=== PATIENT | male | born 1975 ===

== ENCOUNTER 2018-05-30 15:19 | Emergency (ER) | payer MEDICAID, OTHER ==
[2018-05-30 15:24] VITALS: BMI 35.9
--- NOTE | 2018-05-30 15:50 | ED PDOC ---
HPI: Psych/Substance Abuse Time Seen by Provider: 05/30/18 15:44 Chief Complaint (Nursing): Psychiatric Evaluation Chief Complaint (Provider): Psychiatric Evaluation History Per: Patient, EMS, Family History/Exam Limitations: no limitations Suicide/Self Injury Attempted (Context): None Severity: Moderate Associated Symptoms: Depression, Other (aggressive behavior, (-)homicidal ideation). denies: Suicidal Thoughts Additional Complaint(s): 43 year old male with no pertinent past medical history is brought into the ED by EMS for a psychiatric evaluation for aggressive behavior at home. 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 Patient states that he has had issues with alcoholism and depression for the past few years. Patient denies having suicidal ideation and homicidal ideation. Of note: Patient reports having a terrible headache daily for the past 3x months. PMD: None provided Past Medical History Reviewed: Historical Data, Nursing Documentation, Vital Signs Vital Signs: Last Vital Signs Temp 98.2 F 05/30/18 15:22 Pulse 120 H 05/30/18 15:22 Resp 16 05/30/18 15:22 BP 131/91 H 05/30/18 15:22 Pulse Ox 98 05/30/18 15:22 BASSEM Report Viewed: Yes - Medical History PMH: Depression - Family History Family History: States: No Known Family Hx - Allergies Allergies/Adverse Reactions: Allergies Allergy/AdvReac Type Severity Reaction Status Date / Time No Known Allergies Allergy Verified 05/30/18 15:33 Review of Systems ROS Statement: Except As Marked, All Systems Reviewed And Found Negative Neurological: Positive for: Headache Psych: Positive for: Depression Physical Exam - Reviewed Nursing Documentation Reviewed: Yes Vital Signs Reviewed: Yes - Physical Exam Appears: Positive for: Well, Non-toxic, No Acute Distress Head Exam: Positive for: ATRAUMATIC, NORMOCEPHALIC Skin: Positive for: Normal Color, Warm, Dry Eye Exam: Positive for: Other (poor eye contact) Cardiovascular/Chest: Positive for: Regular Rate, Rhythm Respiratory: Positive for: Normal Breath Sounds Neurologic/Psych: Positive for: Alert, Oriented (3x) - Laboratory Results Result Diagrams: 05/30/18 16:18 05/30/18 16:18 - ECG ECG: Positive for: Interpreted By Me, Viewed By Me ECG Rhythm: Positive for: Sinus Tachycardia Rate: 106 O2 Sat by Pulse Oximetry: 98 (RA) Pulse Ox Interpretation: Normal - CT Scan/US CT head Other Rad Studies (CT/US): Read By Radiologist, Radiology Report Reviewed (see MDM) - Progress ED Course And Treament: EKG: SINUS TACHYCARDIA 107BPM NO ECTOPY NO ACUTE CHANGES CXR: NAD PATIENT IS MEDICALLY CLEARED FOR PSYCHIATRIC EVALUATION SEEN BY CRISIS. D/W DR. GOODRICH DIAGNOSIS UNSPECIFIED PSYCHIATRIC ILLNESS. Medical Decision Making Medical Decision Makin:44 Initial impression: 43 year old male in the ED for a psychiatric and medical evaluation of a headache. Initial plan: * CT head w/o contrast * alcohol serum * CMP * drug screen * CBC with diff * urinalysis * 1:1 * crisis evaluation * reevaluation 19:21 CT head read and reviewed by radiologist FINDINGS: BRAIN No acute intraparenchymal hemorrhage. No mass lesion. No CT evidence for acute territorial infarct. No midline shift or extra-axial collections. VENTRICLES: No hydrocephalus. ORBITS: The orbits are unremarkable. SINUSES AND MASTOIDS: The paranasal sinuses and mastoid air cells are clear. BONES: No fracture. SOFT TISSUES: Unremarkable. IMPRESSION: No acute intracranial abnormality. Scribe Attestation: Documented Walter Fuchs, acting as a scribe for Greg Vasquez PA-C. Provider Scribe Attestation: All medical record entries made by the Scribe were at my direction and personally dictated by me. I have reviewed the chart and agree that the record accurately reflects my personal performance of the history, physical exam, medical decision making, and the department course for this patient. I have also personally directed, reviewed, and agree with the discharge instructions and disposition. Disposition - Clinical Impression Clinical Impression: Psychiatric disturbance - Patient ED Disposition Is Patient to be Admitted: Transfer of Care - Disposition Disposition: Transfer of Care Disposition Time: 00:00 Condition: FAIR Patient Signed Over To: Stuart Ortega Handoff Comments: PENDING [facility] EVALUATION
[2018-05-30 16:27] LABS: BASO # 0.1 K/uL (0.0-0.2); BASO % 1.3 % (0.0-2.0); EOS # 0.1 K/uL (0.0-0.7); EOS % 1.5 % (0.0-4.0); HEMOGLOBIN 13.8 g/dL (12.0-18.0); LYMPH # 1.8 K/uL (1.0-4.3); LYMPH % 33.5 % (20.0-40.0); MEAN CELL VOLUME 96.8 fl (80.0-94.0); MEAN CORPUSCULAR HEMOGLOBIN 32.5 pg (27.0-31.0); MEAN CORPUSCULAR HGB CONC 33.6 g/dL (33.0-37.0); MEAN PLATELET VOLUME 8.5 fl (7.2-11.7); MONO # 0.5 K/uL (0.0-0.8); MONO % 8.6 % (0.0-10.0); NEUT # 2.9 K/uL (1.8-7.0); NEUT % 55.1 % (50.0-75.0); NRBC % 0.1 % (0.0-0.0); RBC 4.24 Mil/uL (4.40-5.90); RED CELL DISTRIBUTION WIDTH 13.2 % (11.5-14.5); WHITE BLOOD COUNT 5.3 K/uL (4.8-10.8)
[2018-05-30 16:38] LABS: ALB/GLOB RATIO 1.4 (1.0-2.1); ALBUMIN 4.3 g/dL (3.5-5.0); ALT/SGPT 34 U/L (21-72); AST/SGOT 28 U/L (17-59); BLOOD UREA NITROGEN 11 mg/dl (9-20); GFR NON-AFRICAN AMERICAN > 60
[2018-05-30 17:26] LABS: URINE BILIRUBIN NEGATIVE (NEGATIVE); URINE BLOOD NEGATIVE (NEGATIVE); URINE CLARITY CLEAR (Clear); URINE COLOR YELLOW (YELLOW); URINE GLUCOSE (UA) NEG (NEGATIVE); URINE LEUKOCYTE ESTERASE NEG Leu/uL (Negative); URINE PROTEIN 30 mg/dL (NEGATIVE); URINE UROBILINOGEN 0.2-1.0 mg/dL (0.2-1.0)
[2018-05-30 17:41] LABS: BARBITURATES, UR NEGATIVE (NEGATIVE); BENZODIAZEPINES, UR NEGATIVE (NEGATIVE); OPIATES, UR NEGATIVE (NEGATIVE); PHENCYCLIDINE, UR NEGATIVE (NEGATIVE)
--- NOTE | 2018-05-31 04:13 | ED PDOC ---
- Laboratory Results Result Diagrams: 05/30/18 16:18 05/30/18 16:18 Lab Results: Total Bilirubin 0.8 mg/dl (0.2-1.3) 05/30/18 16:18 AST 28 U/L (17-59) 05/30/18 16:18 ALT 34 U/L (21-72) 05/30/18 16:18 Alkaline Phosphatase 44 U/L (38-126) 05/30/18 16:18 Total Protein 7.3 G/DL (6.3-8.2) 05/30/18 16:18 Albumin 4.3 g/dL (3.5-5.0) 05/30/18 16:18 Globulin 3.1 gm/dL (2.2-3.9) 05/30/18 16:18 Albumin/Globulin Ratio 1.4 (1.0-2.1) 05/30/18 16:18 Urine Color Yellow (YELLOW) 05/30/18 17:15 Urine Clarity Clear (Clear) 05/30/18 17:15 Urine pH 6.0 (5.0-8.0) 05/30/18 17:15 Ur Specific [place] 1.016 (1.003-1.030) 05/30/18 17:15 Urine Protein 30 mg/dL (NEGATIVE) 05/30/18 17:15 Urine Glucose (UA) Neg mg/dL (NEGATIVE) 05/30/18 17:15 Urine Ketones Negative mg/dL (NEGATIVE) 05/30/18 17:15 Urine Blood Negative (NEGATIVE) 05/30/18 17:15 Urine Nitrate Negative (NEGATIVE) 05/30/18 17:15 Urine Bilirubin Negative (NEGATIVE) 05/30/18 17:15 Urine Urobilinogen 0.2-1.0 mg/dL (0.2-1.0) 05/30/18 17:15 Ur Leukocyte Esterase Neg Mariam/uL (Negative) 05/30/18 17:15 - ECG O2 Sat by Pulse Oximetry: 100 - Progress ED Course And Treament: 0000 Signed out to me pending [facility] [place] [place] 0100 Sleeping comfortably. No distress. 0300 Pt. accepted [place] [facility] [place] Pending transfer. Disposition - Clinical Impression Clinical Impression: Schizophrenia - POA Present On Arrival: None - Disposition Disposition: Transfer of Care (Dr. Shazia continued care at the end of my shift pending [facility] [place] Disposition Time: 06:00 Condition: STABLE Forms: [facility] 911 (Turkish)
[2018-05-31 05:47] VITALS: RESP 18
--- NOTE | 2018-05-31 07:02 | ED PDOC ---
- Laboratory Results Result Diagrams: 05/30/18 16:18 05/30/18 16:18 Lab Results: Total Bilirubin 0.8 mg/dl (0.2-1.3) 05/30/18 16:18 AST 28 U/L (17-59) 05/30/18 16:18 ALT 34 U/L (21-72) 05/30/18 16:18 Alkaline Phosphatase 44 U/L (38-126) 05/30/18 16:18 Total Protein 7.3 G/DL (6.3-8.2) 05/30/18 16:18 Albumin 4.3 g/dL (3.5-5.0) 05/30/18 16:18 Globulin 3.1 gm/dL (2.2-3.9) 05/30/18 16:18 Albumin/Globulin Ratio 1.4 (1.0-2.1) 05/30/18 16:18 Urine Color Yellow (YELLOW) 05/30/18 17:15 Urine Clarity Clear (Clear) 05/30/18 17:15 Urine pH 6.0 (5.0-8.0) 05/30/18 17:15 Ur Specific [place] 1.016 (1.003-1.030) 05/30/18 17:15 Urine Protein 30 mg/dL (NEGATIVE) 05/30/18 17:15 Urine Glucose (UA) Neg mg/dL (NEGATIVE) 05/30/18 17:15 Urine Ketones Negative mg/dL (NEGATIVE) 05/30/18 17:15 Urine Blood Negative (NEGATIVE) 05/30/18 17:15 Urine Nitrate Negative (NEGATIVE) 05/30/18 17:15 Urine Bilirubin Negative (NEGATIVE) 05/30/18 17:15 Urine Urobilinogen 0.2-1.0 mg/dL (0.2-1.0) 05/30/18 17:15 Ur Leukocyte Esterase Neg Mariam/uL (Negative) 05/30/18 17:15 - ECG O2 Sat by Pulse Oximetry: 100 Medical Decision Making Medical Decision Makinam received pending bed availability at [facility] Disposition - Clinical Impression Clinical Impression: Schizophrenia - Disposition Condition: STABLE Forms: [employer] (Finnish)
--- NOTE | 2018-05-31 08:46 | CT ---
Date of service: 05/30/2018 PROCEDURE: CT HEAD WITHOUT CONTRAST. HISTORY: headache COMPARISON: None available. TECHNIQUE: Axial computed tomography images were obtained through the head/brain without intravenous contrast. Radiation dose: Total exam DLP = 903.53 mGy-cm. This CT exam was performed using one or more of the following dose reduction techniques: Automated exposure control, adjustment of the mA and/or kV according to patient size, and/or use of iterative reconstruction technique. FINDINGS: HEMORRHAGE: No intracranial hemorrhage. BRAIN: No mass effect or edema. No atrophy or chronic microvascular ischemic changes. VENTRICLES: Unremarkable. No hydrocephalus. CALVARIUM: Unremarkable. PARANASAL SINUSES: Unremarkable as visualized. No significant inflammatory changes. MASTOID AIR CELLS: Unremarkable as visualized. No inflammatory changes. OTHER FINDINGS: None. IMPRESSION: No acute intracranial pathology.
[2018-05-31 10:05] VITALS: TEMP 98.2
--- NOTE | 2018-05-31 10:23 | RAD ---
Date of service: 05/30/2018 HISTORY: routine COMPARISON: No prior. FINDINGS: LUNGS: No active pulmonary disease. PLEURA: No significant pleural effusion identified, no pneumothorax apparent. CARDIOVASCULAR: No aortic atherosclerotic calcification present. Normal cardiac size. No pulmonary vascular congestion. OSSEOUS STRUCTURES: No significant abnormalities. VISUALIZED UPPER ABDOMEN: Normal. OTHER FINDINGS: None. IMPRESSION: No active disease.
--- NOTE | 2018-05-31 13:17 | CARD ---
APPROVED REPORT Date of service: 05/30/2018 EKG Measurement Heart [id number] <Conclusion> Sinus tachycardia Otherwise normal ECG
--- NOTE | 2018-05-31 16:56 | CP.PCM.CON ---
History of Present Illness - History of Present Illness History of Present Illness: This is a 43 yr old male with h/o depression and significant psychosis and has been brought to ER by family as pt is very depressed ,disorganized and paranoid with poor insight and judgement refusing voluntary admission.pt has been sc reened by [facility] and accepted for admission and requesting a PC by the blog writer for pt 's involuntary committment so that pt can go to the Unit in [facility] directly. Past Patient History - Past Social History Smoking Status: Never Smoked - CARDIAC Hx Cardiac Disorders: No Hx Hypertension: No - PULMONARY Hx Tuberculosis: No - NEUROLOGICAL HX Cerebrovascular Accident: No Hx Seizures: No - HEMATOLOGICAL/ONCOLOGICAL Hx Cancer: No Hx Human Immunodeficiency Virus (HIV): No - GENITOURINARY/GYNECOLOGICAL Hx Sexually Transmitted Disorders: No - PSYCHIATRIC Hx Depression: Yes Meds Allergies/Adverse Reactions: Allergies Allergy/AdvReac Type Severity Reaction Status Date / Time No Known Allergies Allergy Verified 05/30/18 15:33 Results - Vital Signs Recent Vital Signs: Last Vital Signs Temp 98.2 F 05/31/18 10:04 Pulse 77 05/31/18 10:04 Resp 18 05/31/18 10:04 BP 148/87 05/31/18 10:04 Pulse Ox 99 05/31/18 10:04 - Labs Result Diagrams: 05/30/18 16:18 05/30/18 16:18 Labs: Laboratory Results - last 24 hr 05/30/18 05/30/18 17:15 17:15 Urine Color Yellow Urine Clarity Clear Urine pH 6.0 Ur Specific [place] 1.016 Urine Protein 30 Urine Glucose (UA) Neg Urine Ketones Negative Urine Blood Negative Urine Nitrate Negative Urine Bilirubin Negative Urine Urobilinogen 0.2-1.0 Ur Leukocyte Esterase Neg Urine Opiates Screen Negative Urine Methadone Screen Negative Ur Barbiturates Screen Negative Ur Phencyclidine Scrn Negative Ur Amphetamines Screen Negative U Benzodiazepines Scrn Negative U Oth Cocaine Metabols Negative U Cannabinoids Screen Negative
--- NOTE | 2018-05-31 17:31 | ED PDOC ---
- Laboratory Results Result Diagrams: 05/30/18 16:18 05/30/18 16:18 Lab Results: Total Bilirubin 0.8 mg/dl (0.2-1.3) 05/30/18 16:18 AST 28 U/L (17-59) 05/30/18 16:18 ALT 34 U/L (21-72) 05/30/18 16:18 Alkaline Phosphatase 44 U/L (38-126) 05/30/18 16:18 Total Protein 7.3 G/DL (6.3-8.2) 05/30/18 16:18 Albumin 4.3 g/dL (3.5-5.0) 05/30/18 16:18 Globulin 3.1 gm/dL (2.2-3.9) 05/30/18 16:18 Albumin/Globulin Ratio 1.4 (1.0-2.1) 05/30/18 16:18 Urine Color Yellow (YELLOW) 05/30/18 17:15 Urine Clarity Clear (Clear) 05/30/18 17:15 Urine pH 6.0 (5.0-8.0) 05/30/18 17:15 Ur Specific [place] 1.016 (1.003-1.030) 05/30/18 17:15 Urine Protein 30 mg/dL (NEGATIVE) 05/30/18 17:15 Urine Glucose (UA) Neg mg/dL (NEGATIVE) 05/30/18 17:15 Urine Ketones Negative mg/dL (NEGATIVE) 05/30/18 17:15 Urine Blood Negative (NEGATIVE) 05/30/18 17:15 Urine Nitrate Negative (NEGATIVE) 05/30/18 17:15 Urine Bilirubin Negative (NEGATIVE) 05/30/18 17:15 Urine Urobilinogen 0.2-1.0 mg/dL (0.2-1.0) 05/30/18 17:15 Ur Leukocyte Esterase Neg Mariam/uL (Negative) 05/30/18 17:15 - ECG O2 Sat by Pulse Oximetry: 99 Medical Decision Making Medical Decision Making: Pt seen and evaluated by crisis and awaiting bed at [facility] [place] [place]. Pt comfortable with normal vitals. Signed out from Dr. Mendez pending transfer out. No medical intervention needed at this time. Disposition - Clinical Impression Clinical Impression: Schizophrenia - POA Present On Arrival: None - Disposition Disposition: Transfer of Care Disposition Time: 19:00 Condition: FAIR Forms: [facility] (Wolof)
--- NOTE | 2018-05-31 19:56 | ED PDOC ---
- Laboratory Results Result Diagrams: 05/30/18 16:18 05/30/18 16:18 Lab Results: Total Bilirubin 0.8 mg/dl (0.2-1.3) 05/30/18 16:18 AST 28 U/L (17-59) 05/30/18 16:18 ALT 34 U/L (21-72) 05/30/18 16:18 Alkaline Phosphatase 44 U/L (38-126) 05/30/18 16:18 Total Protein 7.3 G/DL (6.3-8.2) 05/30/18 16:18 Albumin 4.3 g/dL (3.5-5.0) 05/30/18 16:18 Globulin 3.1 gm/dL (2.2-3.9) 05/30/18 16:18 Albumin/Globulin Ratio 1.4 (1.0-2.1) 05/30/18 16:18 Urine Color Yellow (YELLOW) 05/30/18 17:15 Urine Clarity Clear (Clear) 05/30/18 17:15 Urine pH 6.0 (5.0-8.0) 05/30/18 17:15 Ur Specific [place] 1.016 (1.003-1.030) 05/30/18 17:15 Urine Protein 30 mg/dL (NEGATIVE) 05/30/18 17:15 Urine Glucose (UA) Neg mg/dL (NEGATIVE) 05/30/18 17:15 Urine Ketones Negative mg/dL (NEGATIVE) 05/30/18 17:15 Urine Blood Negative (NEGATIVE) 05/30/18 17:15 Urine Nitrate Negative (NEGATIVE) 05/30/18 17:15 Urine Bilirubin Negative (NEGATIVE) 05/30/18 17:15 Urine Urobilinogen 0.2-1.0 mg/dL (0.2-1.0) 05/30/18 17:15 Ur Leukocyte Esterase Neg Mariam/uL (Negative) 05/30/18 17:15 - ECG O2 Sat by Pulse Oximetry: 100 Medical Decision Making Medical Decision Makin:00 Patient endorsed to provider by Dr. Flores pending [facility] [place]. 20:50 Patient was [place] [facility] Scribe Attestation: Documented by Say Pham, acting as a scribe for Matt Mehta MD Provider Scribe Attestation: All medical record entries made by the Scribe were at my direction and personally dictated by me. I have reviewed the chart and agree that the record accurately reflects my personal performance of the history, physical exam, medical decision making, and the department course for this patient. I have also personally directed, reviewed, and agree with the discharge instructions and disposition. Disposition - Clinical Impression Clinical Impression: Schizophrenia - POA Present On Arrival: None - Disposition Disposition: Other Institution Disposition Time: 20:50 Condition: FAIR Forms: [employer] (Belarusian)
[2018-05-31 22:35] VITALS: BP 153/89; PULSE 89
[2018-06-02 14:27] VITALS: O2SAT 99
== END 2018-05-31 20:50 | disposition short-term general hospital (02) ==
LOC: H.ER 15:19
DX: F20.9 Schizophrenia, unspecified (principal); F32.9 Major depressive disorder, single episode, unspecified; R51 Headache
CPT/HCPCS: 70450; 71045; 80053; 81003; 85025; 93005; 99285; G0480

== ENCOUNTER 2018-07-07 15:18 | Observation (INO) | payer MEDICAID, OTHER ==
[2018-07-07 15:18] VITALS: BMI 35.9
[2018-07-07 17:00] LABS: BASO # 0.1 K/uL (0.0-0.2); BASO % 0.9 % (0.0-2.0); EOS # 0.1 K/uL (0.0-0.7); EOS % 1.1 % (0.0-4.0); HEMOGLOBIN 15.3 g/dL (12.0-18.0); LYMPH # 2.5 K/uL (1.0-4.3); MEAN CELL VOLUME 95.2 fl (80.0-94.0); MEAN CORPUSCULAR HEMOGLOBIN 32.2 pg (27.0-31.0); MEAN CORPUSCULAR HGB CONC 33.9 g/dL (33.0-37.0); MEAN PLATELET VOLUME 8.7 fl (7.2-11.7); MONO # 0.8 K/uL (0.0-0.8); NEUT # 4.3 K/uL (1.8-7.0); NRBC % 0.1 % (0.0-0.0); RBC 4.73 Mil/uL (4.40-5.90); RED CELL DISTRIBUTION WIDTH 13.1 % (11.5-14.5); WHITE BLOOD COUNT 7.7 K/uL (4.8-10.8)
[2018-07-07 17:13] LABS: BLOOD UREA NITROGEN 17 mg/dl (9-20); CALCIUM 9.8 mg/dL (8.4-10.2); GFR NON-AFRICAN AMERICAN > 60
--- NOTE | 2018-07-07 19:24 | ED PDOC ---
Syncope/Near Syncope/Dizziness Time Seen by Provider: 07/07/18 15:52 Chief Complaint (Nursing): Dizziness/Lightheaded Chief Complaint (Provider): dizziness/syncope History Per: Patient Additional Complaint(s): 43 y/o M with recently diagnosed schizoaffective disorder with depressed mood who was recently admitted involuntarily to [facility] for psychosis and was discharged on 06/09/18. Pt states that he was discharged on Risperidone and Benadryl for sleep and has been taking it regularly. Pt woke up this morning and went to walk to the bathroom when he had a syncopal episode with + LOC. He denies head trauma as his mother was with him and caught him but continues to have dizziness since that occurrence. Further denies urinary or fecal incontinence, palpitations, C/P, SOB, visual disturbance, unilateral weakness. denies N/V, diarrhea. He has been drinking normally and has never had a syncopal episode before. OF note: pt states that he had an allergic reaction to a medication at [facility] but is not sure what medication it was. Past Medical History Reviewed: Historical Data, Nursing Documentation, Vital Signs Vital Signs: Last Vital Signs Temp 98.7 F 07/07/18 15:22 Pulse 83 07/07/18 15:22 Resp 18 07/07/18 15:22 BP 141/98 H 07/07/18 15:22 Pulse Ox 100 07/07/18 15:22 - Medical History PMH: Depression (06/09 started) Denies: Diabetes, Hepatitis, HIV, HTN, Seizures, Sexually Transmitted Disease Other PMH: schizoaffective disorder with depressed mood - Family History Family History: States: Unknown Family Hx - Allergies Allergies/Adverse Reactions: Allergies Allergy/AdvReac Type Severity Reaction Status Date / Time No Known Allergies Allergy Verified 05/30/18 15:33 Review of Systems Constitutional: Negative for: Fever, Chills Physical Exam - Reviewed Nursing Documentation Reviewed: Yes Vital Signs Reviewed: Yes - Physical Exam Appears: Positive for: Non-toxic Head Exam: Positive for: ATRAUMATIC Skin: Positive for: Normal Color Eye Exam: Positive for: EOMI, PERRL ENT: Positive for: Normal ENT Inspection Neck: Positive for: Normal, Painless ROM Cardiovascular/Chest: Positive for: Regular Rate, Rhythm Respiratory: Positive for: Normal Breath Sounds Neurologic/Psych: Positive for: Alert, transportation escort II-XII (symmetrical smile, puff cheeks symmetrically, no tongue deviation. ), Oriented, Cerebellar Tests (able to perform alternating finger to nose. ), Gait (stable). Negative for: Facial Droop - Laboratory Results Result Diagrams: 07/07/18 16:44 07/07/18 16:44 - ECG O2 Sat by Pulse Oximetry: 100 Medical Decision Making Medical Decision Making: CBC, CMP EKG Tele Head CT w/o contrast Orthostatic BP Labs wnl orthostatic BP: Lying: BP: 132/85, HR 85; Sittin/93, HR 93; standing: BP: 136/80, HR 116; NS 1L IV x 1 given orthostatic tachycardia NO events on telemetry 20:15: Head CT w/o contrast: no intracranial abnormality. Dr. Kuhn of neurology consulted who stated that he will see patient during admission. Admission discussed with Dr. Roth and care transferred at 20:42. Pt to be admitted for observation on telemetry for syncope. Disposition - Clinical Impression Clinical Impression: Syncope - Patient ED Disposition Is Patient to be Admitted: Transfer of Care (Dr. Roth) Counseled Patient/Family Regarding: Studies Performed, Diagnosis - Disposition Disposition: Transfer of Care Disposition Time: 20:42 Condition: FAIR Forms: [employer] (Kazakh)
[2018-07-07] MEDS ORDERED: Sodium Chloride 0.9% 1,000 ML IV STA (19:29)
--- NOTE | 2018-07-08 10:53 | CT ---
Date of service: 07/07/2018 PROCEDURE: CT HEAD WITHOUT CONTRAST. HISTORY: s/p syncope with residual dizziness COMPARISON: 05/30/2018. TECHNIQUE: Axial computed tomography images were obtained through the head/brain without intravenous contrast. Supplemental Coronal and Sagittal projections created and reviewed. Radiation dose: Total exam DLP = 81.50 mGy-cm. This CT exam was performed using one or more of the following dose reduction techniques: Automated exposure control, adjustment of the mA and/or kV according to patient size, and/or use of iterative reconstruction technique. FINDINGS: HEMORRHAGE: No intracranial hemorrhage. BRAIN: No mass effect or edema. No atrophy or chronic microvascular ischemic changes. VENTRICLES: Unremarkable. No hydrocephalus. CALVARIUM: Unremarkable. PARANASAL SINUSES: Unremarkable as visualized. No significant inflammatory changes. MASTOID AIR CELLS: Unremarkable as visualized. No inflammatory changes. OTHER FINDINGS: None. IMPRESSION: No acute intracranial abnormalities. No significant findings to account for the clinical presentation. No significant interval change compared to the prior examination(s). Concordant results (preliminary interpretation) provided by [employer]. Procedure Completed: 19:18. Preliminary Report: Interpreted and electronically signed: 19:38. Final Interpretation: 10:48. July 08, 2018
--- NOTE | 2018-07-08 12:49 | CARD ---
APPROVED REPORT Date of service: 07/07/2018 EKG Measurement Heart [id number] [id number] <Conclusion> Normal sinus rhythm Early repolarization Normal ECG
--- NOTE | 2018-07-08 14:06 | CP.PCM.CON ---
History of Present Illness - History of Present Illness History of Present Illness: Neurology Consultation Note: Consult requested by Dr. Roth Mr. Soto is a 43-year-old man with a past medical history of schizoaffective disorder, recently started on Risperdal and Benadryl and has been taking his medications regularly. He got out of bed and was feeling dizzy, had a syncopal episode. There was no reported shaking, jerking activity or loss of urinary/bowel content, no tongue biting reported. CT scan of the head did not show any concerning findings. The patient still complains of feeling dizzy, but not vertigo and does not have any focal weakness. Review of Systems - Constitutional Constitutional: As Per HPI - EENT Eyes: absent: As Per HPI, Blind Spots, Blurred Vision, Change in Vision, Decreased Night Vision, Diplopia, Discharge, Dry Eye, Exophthalmos, Floaters, Irritation, Itchy Eyes, Loss of Peripheral Vision, Pain, Photophobia, Requires Corrective Lenses, Sees Flashes, Spots in Vision, Tunnel Vision, Other Visual Disturbances, Loss of Vision, Other Ears: absent: As Per HPI, Decreased Hearing, Ear Discharge, Ear Pain, Tinnitus, Abnormal Hearing, Disequilibrium, Dizziness, Other Nose/Mouth/Throat: absent: As Per HPI, Epistaxis, Nasal Congestion, Nasal Discharge, Nasal Obstruction, Nasal Trauma, Nose Pain, Post Nasal Drip, Sinus Pain, Sinus Pressure, Bleeding Gums, Change in Voice, Dental Pain, Dry Mouth, Dysphagia, Halitosis, Hoarsness, Lip Swelling, Mouth Lesions, Mouth Pain, Odynophagia, Sore Throat, Throat Swelling, Tongue Swelling, Facial Pain, Neck Pain, Neck Mass, Other - Cardiovascular Cardiovascular: absent: As Per HPI, Acrocyanosis, Chest Pain, Chest Pain at Rest, Chest Pain with Activity, Claudication, Diaphoresis, Dyspnea, Dyspnea on Exertion, Edema, Irregular Heart Rhythm, Pain Radiating to Arm/Neck/Jaw, Leg Edema, Leg Ulcers, Lightheadedness, Orthopnea, Palpitations, Paroxysmal Nocturnal Dyspnea, Pedal Edema, Radiating Pain, Rapid Heart Rate, Slow Heart Rate, Syncope, Other - Respiratory Respiratory: absent: As Per HPI, Cough, Dyspnea, Hemoptysis, Dyspnea on Exertion, Wheezing, Snoring, Stridor, Pain on Inspiration, Chest Congestion, Excessive Mucous Production, Change in Mucous Color, Pain with Coughing, Other - Gastrointestinal Gastrointestinal: absent: As Per HPI, Abdominal Pain, Belching, Bloating, Change in Bowel Habits, Change in Stool Character, Coffee Ground Emesis, Constipation, Cramping, Diarrhea, Dyspepsia, Dysphagia, Early Satiety, Excessive Flatus, Fecal Incontinence, Heartburn, Hematemesis, Hematochezia, Loose Stools, Melena, Nausea, Odynophagia, Temesmus, Vomiting, Other - Musculoskeletal Musculoskeletal: absent: As Per HPI, Abnormal Gait, Arthralgias, Atrophy, Back Pain, Deformity, Joint Swelling, Limited Range of Motion, Loss of Height, Muscle Cramps, Muscle Weakness, Myalgias, Neck Pain, Numbness, Radiating Pain into Limb, Stiffness, Tingling, Other - Integumentary Integumentary: absent: As Per HPI, Acne, Alopecia, Bleeding Lesions, Change in Hair, Change in Nails, Change in Pigmentation, Changing Lesions, Dry Skin, Erythema, Furuncle, Hirsutism, Lesions, New Lesions, Non-Healing Lesions, Photosensitivity, Pruritus, Rash, Skin Pain, Skin Ulcer, Sores, Striae, Swelling, Unusual Bruising, Wounds, Jaundice, Other - Neurological Neurological: As Per HPI - Psychiatric Psychiatric: absent: As Per HPI, Abnormal Sleep Pattern, Anhedonia, Anxiety, Auditory Hallucinations, Behavioral Changes, Change in Appetite, Change in Libido, Confusion, Depression, Difficulty Concentrating, Hallucinations, Scott icidal Ideation, Hopelessness, Irritability, Memory Loss, Mood Swings, Panic Attacks, Paranoia, Suicidal Ideation, Visual Hallucinations, Tactile Hallucinations, Other - Endocrine Endocrine: absent: As Per HPI, Change in Body Appearance, Change in Libido, Cold Intolorance, Deepening of Voice, Excessive Sweating, Fatigue, Flushing, Heat Intolorance, Increase in Ring/Shoe/Hat Size, Palpitations, Polydipsia, Polyphagia, Polyuria, Other - Hematologic/Lymphatic Hematologic: absent: As Per HPI, Easy Bleeding, Easy Bruising, Lymphadenopathy, Other Past Patient History - Past Social History Smoking Status: Never Smoked - CARDIAC Hx Cardiac Disorders: No - PULMONARY Hx Respiratory Disorders: No Hx Tuberculosis: No - NEUROLOGICAL Hx Neurological Disorder: No Hx Seizures: No - HEENT Hx HEENT Problems: No - RENAL Hx Chronic Kidney Disease: No - ENDOCRINE/METABOLIC Hx Endocrine Disorders: No - HEMATOLOGICAL/ONCOLOGICAL Hx Blood Disorders: No Hx AIDS: No Hx Human Immunodeficiency Virus (HIV): No - INTEGUMENTARY Hx Dermatological Problems: No - MUSCULOSKELETAL/RHEUMATOLOGICAL Hx Musculoskeletal Disorders: No Hx Falls: Yes - GASTROINTESTINAL Hx Gastrointestinal Disorders: No - GENITOURINARY/GYNECOLOGICAL Hx Genitourinary Disorders: No Hx Sexually Transmitted Disorders: No - PSYCHIATRIC Hx Psychophysiologic Disorder: Yes (schizoaffective disorder) Hx Depression: Yes Hx Substance Use: No - SURGICAL HISTORY Hx Surgeries: No - ANESTHESIA Hx Anesthesia: No Meds Allergies/Adverse Reactions: Allergies Allergy/AdvReac Type Severity Reaction Status Date / Time No Known Allergies Allergy Verified 05/30/18 15:33 - Medications Medications: Current Medications Fluticasone Propionate (Flonase) 1 spr CORNELIA BID GLENN Risperidone (Risperdal Tab) 2 mg PO HS GLENN Physical Exam - Constitutional Appears: Well - Head Exam Head Exam: ATRAUMATIC, NORMAL INSPECTION, NORMOCEPHALIC - Eye Exam Eye Exam: EOMI, Normal appearance, PERRL Pupil Exam: NORMAL ACCOMODATION, PERRL - ENT Exam ENT Exam: Mucous Membranes Moist, Normal Exam - Neck Exam Neck exam: Positive for: Normal Inspection - Respiratory Exam Respiratory Exam: Clear to Auscultation Bilateral, NORMAL BREATHING PATTERN - Cardiovascular Exam Cardiovascular Exam: REGULAR RHYTHM - GI/Abdominal Exam GI & Abdominal Exam: Normal Bowel Sounds, Soft. absent: Tenderness - Extremities Exam Extremities exam: Positive for: normal inspection - Back Exam Back exam: NORMAL INSPECTION - Neurological Exam Neurological exam: Alert, CN II-XII Intact, Normal Gait, Oriented x3, Reflexes Normal - Psychiatric Exam Psychiatric exam: Normal Affect, Normal Mood - Skin Skin Exam: Dry, Intact, Normal Color, Warm Results - Vital Signs Recent Vital Signs: Last Vital Signs Temp 98.6 F 07/08/18 12:24 Pulse 75 07/08/18 12:24 Resp 18 07/08/18 12:24 BP 123/80 07/08/18 12:24 Pulse Ox 96 07/08/18 12:24 - Labs Result Diagrams: 07/07/18 16:44 07/07/18 16:44 Labs: Laboratory Results - last 24 hr 07/07/18 07/07/18 07/07/18 15:28 16:44 16:44 WBC 7.7 RBC 4.73 Hgb 15.3 Hct 45.1 MCV 95.2 H MCH 32.2 H MCHC 33.9 RDW 13.1 Plt Count 212 MPV 8.7 Neut % (Auto) 56.0 Lymph % (Auto) 32.0 Sunflower % (Auto) 10.0 Eos % (Auto) 1.1 Baso % (Auto) 0.9 Neut # (Auto) 4.3 Lymph # (Auto) 2.5 Sunflower # (Auto) 0.8 Eos # (Auto) 0.1 Baso # (Auto) 0.1 Sodium 139 Potassium 3.9 Chloride 99 Carbon Dioxide 26 Anion Gap 18 BUN 17 Creatinine 1.1 Est GFR ( Amer) > 60 Est GFR (Non-Af Amer) > 60 POC Glucose (mg/dL) 91 Random Glucose 80 Calcium 9.8 Troponin I 07/08/18 08:10 WBC RBC Hgb Hct MCV MCH MCHC RDW Plt Count MPV Neut % (Auto) Lymph % (Auto) Sunflower % (Auto) Eos % (Auto) Baso % (Auto) Neut # (Auto) Lymph # (Auto) Sunflower # (Auto) Eos # (Auto) Baso # (Auto) Sodium Potassium Chloride Carbon Dioxide Anion Gap BUN Creatinine Est GFR ( Amer) Est GFR (Non-Af Amer) POC Glucose (mg/dL) Random Glucose Calcium Troponin I < 0.0120 Assessment & Plan (1) Syncope Assessment and Plan: This may be due to new medication effect; however, there is a concern that anti- psychotics can also lower the seizure threshold. I recommend obtaining an EEG. If normal, follow up with psychiatry for medication adjustment. Thank you for this consultation. Status: Acute
--- NOTE | 2018-07-08 16:31 | US ---
Date of service: 07/08/2018 PROCEDURE: Duplex ultrasound of the carotid and vertebral arteries. HISTORY: syncope COMPARISON: None available. TECHNIQUE: Grayscale and duplex Doppler evaluation of the cervical carotid and vertebral arteries were performed. The common carotid, carotid bifurcations and cervical ICA and proximal ECA were evaluated. The vertebral arteries were evaluated for gross patency and direction. FINDINGS: RIGHT CAROTID ARTERIES: Common Carotid Artery: Maximal flow velocity of 77.6 cm/s. Carotid Bifurcation: Normal. Internal Carotid Artery:Heterogeneous plaque formation. Maximal flow velocity of 51.0 cm/s. External Carotid Artery (proximal branches): Maximal flow velocity of 48.1 cm/s. ICA/CCA Ratio: 0.7 LEFT CAROTID ARTERIES: Common Carotid Artery: Maximal flow velocity of 79.8 cm/s. Carotid Bifurcation: Normal. Internal Carotid Artery:Heterogeneous plaque formation. Maximal flow velocity of 61.9 cm/s. External Carotid Artery (proximal branches): Maximal flow velocity of 54.5 cm/s. ICA/CCA Ratio: 0.8 VERTEBRAL ARTERIES: Right Vertebral Artery: Patent. Antegrade flow. Left Vertebral Artery: Patent. Antegrade flow. OTHER FINDINGS: Atherosclerotic calcification present. IMPRESSION: Right ICA degree of stenosis: Less than 50% Left ICA degree of stenosis: Less than 50% Reference Internal Carotid Artery (ICA) Peak Systolic Velocity (PSV) for above: 1. Less than 50% stenosis less than 125 cm/s peak systolic velocity 2. 50-69% stenosis 125-230cm/s peak systolic velocity 3. Greater than 70% but less than near occlusion greater than 230 cm/s peak systolic velocity
--- NOTE | 2018-07-08 18:39 | CP.PCM.HP ---
History of Present Illness - History of Present Illness History of Present Illness: This is a 43 y/o male with hx of schizoaffective disorder was admitted last night for syncope at home. Past Patient History - Past Social History Smoking Status: Never Smoked - CARDIAC Hx Cardiac Disorders: No - PULMONARY Hx Respiratory Disorders: No Hx Tuberculosis: No - NEUROLOGICAL Hx Neurological Disorder: No Hx Seizures: No - HEENT Hx HEENT Problems: No - RENAL Hx Chronic Kidney Disease: No - ENDOCRINE/METABOLIC Hx Endocrine Disorders: No - HEMATOLOGICAL/ONCOLOGICAL Hx Blood Disorders: No Hx AIDS: No Hx Human Immunodeficiency Virus (HIV): No - INTEGUMENTARY Hx Dermatological Problems: No - MUSCULOSKELETAL/RHEUMATOLOGICAL Hx Musculoskeletal Disorders: No Hx Falls: Yes - GASTROINTESTINAL Hx Gastrointestinal Disorders: No - GENITOURINARY/GYNECOLOGICAL Hx Genitourinary Disorders: No Hx Sexually Transmitted Disorders: No - PSYCHIATRIC Hx Psychophysiologic Disorder: Yes (schizoaffective disorder) Hx Depression: Yes Hx Substance Use: No - SURGICAL HISTORY Hx Surgeries: No - ANESTHESIA Hx Anesthesia: No Meds Allergies/Adverse Reactions: Allergies Allergy/AdvReac Type Severity Reaction Status Date / Time No Known Allergies Allergy Verified 05/30/18 15:33 Results - Vital Signs Recent Vital Signs: Last Vital Signs Temp 98.1 F 07/08/18 17:00 Pulse 70 07/08/18 17:00 Resp 20 07/08/18 17:00 BP 135/89 07/08/18 17:00 Pulse Ox 97 07/08/18 17:00 - Labs Result Diagrams: 07/07/18 16:44 07/07/18 16:44 Labs: Laboratory Results - last 24 hr 07/08/18 08:10 Troponin I < 0.0120
--- NOTE | 2018-07-08 21:03 | CARD ---
APPROVED REPORT Date of service: 07/08/2018 EXAM: Two-dimensional and M-mode echocardiogram with Doppler and color Doppler. Other Information Quality : GoodRhythm : NSR INDICATION Syncope 2D DIMENSIONS IVSd1.16 (0.7-1.1cm)LVDd4.92 (3.9-5.9cm) LVOT Diameter2.44 (1.8-2.4cm)PWd1.06 (0.7-1.1cm) IVSs1.58 (0.8-1.2cm)LVDs3.32 (2.5-4.0cm) FS (%) 32.5 %PWs1.59 (0.8-1.2cm) M-Mode DIMENSIONS Left Atrium (MM)3.76 (2.5-4.0cm)IVSd1.44 (0.7-1.1cm) Aortic Root3.65 (2.2-3.7cm)LVDd5.32 (4.0-5.6cm) Aortic Cusp Exc.1.97 (1.5-2.0cm)PWd1.41 (0.7-1.1cm) IVSs1.74 cmFS (%) 33 % LVDs3.56 (2.0-3.8cm)PWs1.50 cm Aortic Valve AoV Peak Fmtbiurm140.1cm/sAoV VTI23.9cmAO Peak GR.6mmHg LVOT Peak Qmbxiljd10.8cm/sLVOT VTI17.31cmAO Mean GR.3mmHg BEE (VMAX)1.27un8GZD (VTI)1.53cm2 Mitral Valve MV E Ymxyweqt27.1cm/sMV DECEL [id number] A Jdjxjuva79.4cm/s MV CHG40xdB/A ratio1.1MVA (PHT)2.91cm2 TDI Lateral E' Peak V12.47cm/sMedial E' Peak V8.15cm/sE/Lateral E'3.8 E/Medial E'5.8 LEFT VENTRICLE The left ventricle is normal size. There is normal left ventricular wall thickness. The left ventricular systolic function is normal. The estimated ejection fraction is 60-65% No regional wall motion abnormalities noted.. The left ventricular diastolic function is normal. No left ventricle thrombus noted on this study. There is no ventricular septal defect visualized. There is no left ventricular aneurysm. There is no mass noted in the left ventricle. RIGHT VENTRICLE The right ventricle is normal size. There is normal right ventricular wall thickness. The right ventricular systolic function is normal. ATRIA The left atrium size is normal. The right atrium size is normal. The interatrial septum is intact with no evidence for an atrial septal defect. AORTIC VALVE The aortic valve is normal in structure. No aortic regurgitation is present. There is no aortic valvular stenosis. There is no aortic valvular vegetation. MITRAL VALVE The mitral valve is normal in structure. There is no evidence of mitral valve prolapse. There is no mitral valve stenosis. There is no mitral valve regurgitation noted. TRICUSPID VALVE The tricuspid valve is normal in structure. There is trivial tricuspid valve regurgitation noted. There is no tricuspid valve prolapse or vegetation. There is no tricuspid valve stenosis. PULMONIC VALVE The pulmonary valve is normal in structure. There is no pulmonic valvular regurgitation. There is no pulmonic valvular stenosis. GREAT VESSELS The aortic root is normal in size. The ascending aorta is normal in size. The pulmonary artery is normal. The IVC is normal in size and collapses >50% with inspiration. PERICARDIAL EFFUSION There is no pericardial effusion. There is no pleural effusion. <Conclusion> The estimated ejection fraction is 60-65% The left ventricular diastolic function is normal. The left atrium size is normal. There is trivial tricuspid valve regurgitation noted.
--- NOTE | 2018-07-09 11:12 | CP.PCM.PN ---
Subjective - Date & Time of Evaluation Date of Evaluation: 07/09/18 Time of Evaluation: 11:10 - Subjective Subjective: Neuro Follow-Up Note: Mr. Soto was evaluated this morning at bedside. He has no complaints today and is requesting to be d/c. He currently denies h/a, dizziness, visual changes, chest pain, sob, abd pain, n/v/d. Objective - Vital Signs/Intake and Output Vital Signs (last 24 hours): Temp Pulse Resp BP Pulse Ox 97.7 F 71 20 131/90 97 07/09/18 09:00 07/09/18 09:00 07/09/18 09:00 07/09/18 09:00 07/09/18 09:00 - Medications Medications: Current Medications Fluticasone Propionate (Flonase) 1 spr CORNELIA BID GLENN Last Admin: 07/09/18 09:28 Dose: 1 spr Risperidone (Risperdal Tab) 2 mg PO HS GLENN Last Admin: 07/08/18 21:39 Dose: Not Given - Labs Labs: 07/07/18 16:44 07/07/18 16:44 - Constitutional Appears: Well, Non-toxic, No Acute Distress - Head Exam Head Exam: ATRAUMATIC, NORMAL INSPECTION, NORMOCEPHALIC - Eye Exam Eye Exam: EOMI, Normal appearance, PERRL Pupil Exam: NORMAL ACCOMODATION, PERRL - ENT Exam ENT Exam: Mucous Membranes Moist - Neck Exam Neck Exam: Full ROM, Normal Inspection - Respiratory Exam Respiratory Exam: NORMAL BREATHING PATTERN - Extremities Exam Extremities Exam: Full ROM, Normal Inspection. absent: Calf Tenderness, Pedal Edema - Neurological Exam Neurological Exam: Alert, Awake, CN II-XII Intact, Normal Gait, Oriented x3, Reflexes Normal Neuro motor strength exam: Left Upper Extremity: 5, Right Upper Extremity: 5, Left Lower Extremity: 5, Right Lower Extremity: 5 - Psychiatric Exam Psychiatric exam: Normal Affect, Normal Mood - Skin Skin Exam: Normal Color Assessment and Plan (1) Syncope Assessment & Plan: Imaging reviewed: -CT Head (07/07/18): No acute intracranial abnormalities. No significant findings to account for the clinical presentation. No significant interval change compared to the prior examination(s). -ECHO (07/08/18): EF 60-65% -Carotid U/S (07/07/18): Right ICA degree of stenosis: Less than 50%. Left ICA degree of stenosis: Less than 50% -EEG (07/08/18): normal -Pt may be cleared for d/c from neuro standpoint and is to f/u with his psychiatrist for medication adjustments. -Notify neuro team if there are any acute changes in pt's condition. Reconsult prn. Thank you for allowing us to participate in this pt's care. Arely Franklin, ERNIE, TEAM GUIDE Case discussed with Dr. Kuhn Status: Acute
--- NOTE | 2018-07-09 11:59 | PCM.EEG ---
Electroencephalogram Report - Electroencephalogram Report Procedure Date: 07/08/18 Medication: Risperdal Interpretation: Technical Information: This was a 16 -channel EEG, 1-channel EKG routine EEG performed using an PowerFile machine. Electrodes were applied using the 10/20 international placement system. Start; End; Total 45 min. Clinical Information: syncope During resting wakefulness there was a symmetric posterior dominant rhythm at 8.5-9.5 Hz, 30-50 uV, which was reactive to eye opening and closing. Drowsiness seen at , was associated with fragmentation of the posterior dominant rhythm and with slow roving eye movements. Light sleep was not recorded . Hyperventilation was performed, no abnormalities seen. Photic stimulation was performed and there were no changes on the record. Focal abnormality; none ECG was associated with a normal sinus rhythm. Impression: This is a normal awake and drowsy electroencephalogram.
--- NOTE | 2018-07-09 12:55 | CP.PCM.CON ---
History of Present Illness - History of Present Illness History of Present Illness: pt is a 43-year-old man with a past medical history of schizoaffective disorder, recently started on Risperdal and Benadryl and has been taking his medications regularly. He got out of bed and was feeling dizzy, had a syncopal episode. pt on evaluation guarded in reference to his psychiatric history, reported has been depressed for some time due to loosing his job, reported two admissions at [facility] for depression and anxiety last was few days ago pt stated prior to discharge he was started on risperidone consta injection, pt relates his recent syncopal episode to be related to being on psychotropics however he denied similar episodes when he was taking his medications at [facility] pt reported on discharge he was referred to [facility] partial program, yet he reported he has no interest to attend the program or to be on medications pt presenting with concrete thought process, reported multiple somatic symptoms with possible somatic preoccupation, denied perceptual disturbances, denied suicidal or homicidal ideation , alert awake oriented to person and place Past Patient History - Past Social History Smoking Status: Never Smoked - CARDIAC Hx Cardiac Disorders: No - PULMONARY Hx Respiratory Disorders: No Hx Tuberculosis: No - NEUROLOGICAL Hx Neurological Disorder: No Hx Seizures: No - HEENT Hx HEENT Problems: No - RENAL Hx Chronic Kidney Disease: No - ENDOCRINE/METABOLIC Hx Endocrine Disorders: No - HEMATOLOGICAL/ONCOLOGICAL Hx AIDS: No Hx Human Immunodeficiency Virus (HIV): No - INTEGUMENTARY Hx Dermatological Problems: No - MUSCULOSKELETAL/RHEUMATOLOGICAL Hx Musculoskeletal Disorders: No Hx Falls: Yes - GASTROINTESTINAL Hx Gastrointestinal Disorders: No - GENITOURINARY/GYNECOLOGICAL Hx Genitourinary Disorders: No Hx Sexually Transmitted Disorders: No - PSYCHIATRIC Hx Psychophysiologic Disorder: Yes (schizoaffective disorder) Hx Depression: Yes Hx Substance Use: No - SURGICAL HISTORY Hx Surgeries: No - ANESTHESIA Hx Anesthesia: No Meds Allergies/Adverse Reactions: Allergies Allergy/AdvReac Type Severity Reaction Status Date / Time No Known Allergies Allergy Verified 05/30/18 15:33 - Medications Medications: Current Medications Fluticasone Propionate (Flonase) 1 spr CORNELIA BID GLENN Last Admin: 07/09/18 09:28 Dose: 1 spr Risperidone (Risperdal Tab) 2 mg PO HS GLENN Last Admin: 07/08/18 21:39 Dose: Not Given Results - Vital Signs Recent Vital Signs: Last Vital Signs Temp 98.3 F 07/09/18 12:09 Pulse 77 07/09/18 12:09 Resp 20 07/09/18 12:09 BP 114/79 07/09/18 12:09 Pulse Ox 97 07/09/18 12:09 - Labs Result Diagrams: 07/07/18 16:44 07/07/18 16:44 Assessment & Plan - Assessment and Plan (Free Text) Assessment: schizoaffective disorder depressed recommend pt to be continued on risperidone social work associate to attempt to get collateral information from mother
[2018-07-09 15:51] VITALS: RESP 17
[2018-07-09 19:17] VITALS: BP 130/90; PULSE 76; TEMP 98.2; O2SAT 95
== END 2018-07-09 21:40 | disposition home or self-care (01) ==
LOC: H.ER 15:18 → H.ERHOLD 20:41 → H.TEL 07-08 00:16
PROVIDERS: ADMIT Family Medicine; ATTEND Family Medicine
DX: R55 Syncope and collapse (principal); F25.1 Schizoaffective disorder, depressive type
CPT/HCPCS: 36415; 70450; 80048; 82948; 84484; 85025; 93005; 93306; 93880; 99285; G0378; J7030

== ENCOUNTER 2018-07-09 21:55 | Inpatient (IN) | payer MEDICAID ==
[2018-07-09 21:57] VITALS: BMI 31.4
[2018-07-09] MEDS ORDERED: Magnesium Hydroxide Susp 30 ml UD PO PRN (22:13)
[2018-07-09] MEDS ORDERED: DiphenhydrAMINE 50 mg/ml Inj IM PRN (22:13)
[2018-07-09] MEDS ORDERED: Alum-Mag Hydrox-Simethicone Susp (30 mL) PO PRN (22:13)
--- NOTE | 2018-07-09 22:29 | PCM.BM ---
<Beverly Phelps - Last Filed: 07/09/18 22:27> Treatment Plan Problems - Problems identified on initial assessmt Medication nonadherence Date Initiated: 07/09/18 Time Initiated: : Assessment reference: NA Status: Active Anxiety Date Initiated: 07/09/18 Time Initiated: 22:27 Assessment reference: NA Status: Active Hopelessness/Helplessness Date Initiated: 07/09/18 Time Initiated: 22:28 Assessment reference: NA Status: Active Treatment assets and liabiliti Patient Assests: cooperative, ADL independent, physically healthy, good support system, negotiates basic needs, good past tx response, cognitively intact Patient Liabilities: financial problems, other (unemployed since 2011) - Milieu Protocol Maintain good personal hygiene: daily Encourage regular showers, other Remind patient to perform daily oral care (prn), other Assist patient to perform ADL's (prn) Conduct patient checks and document Observation sheet: Q15 minutes Maintain personal safety: every shift Educate patient to report safety concerns to staff, every shift Monitor environment for contraband/sharps Medication safety: Monitor for expected outcome, potential side effects: every shift, Assess barriers to learning: every shift, Assess readiness for medication education: every shift <oJseJesusJosephine - Last Filed: 07/10/18 15:59> Treatment assets and liabiliti Patient Assests: adapts well, cooperative, educated (Pt. reports having partial college education ([place]).), motivated (Pt. expresses being motivated for tx.), resourceful, ADL independent, physically healthy, good support system (Pt. identifies mother as primary support. Pt. reports having a loving and supportive relationship with sister and half-brother. Pt. denies strained relationships.), good past tx response, cognitively intact Patient Liabilities: financial problems, substance abuse (Pt. reports being a social drinker but denied ETOH/illicit substance abuse. As per collateral collected from mother, pt. has hx of ETOH abuse. ), other Family Contact Family involvement: Family/SO is involved Family contact: Patient agrees to contact, Family has been contacted by patient, Telephone contact initiated by staff Family contact name: Nita()([phone]) Family contacted how many times per week?: 2 Family contact comment: Collateral collected from pts mother on 2/28 was included in patients initial psychosocial assessment with senior grant writer and discussed ith Dr. Yoder. Please see Note (CLINICAL SUMMARY). Discharge/Continuing Care - Education Needs Education Needs: Family Medication, Family Diagnosis/Disease Process, Family Aftercare Safety Plan, Patient Medication, Patient Diagnosis/Disease Process, Patient Coping Skills, Patient Anger Management skills, Patient Community resources, Patient Aftercare Safety Plan - Discharge Discharge Criteria: Tolerates medication w/o severe side effects, Free of paranoid thoughts, Free of agitation, Normal sleep pattern, Ability to care for self Discharge to:: Home, With Family, Other (Outpatient Mental Health Services) <Isra Yoder - Last Filed: 07/11/18 14:58> - Diagnosis (1) Depression Status: Acute Interventions: psychotherapy, pharmacotherapy 07/11/18 14:58 <Gutierrez Hodge - Last Filed: 07/13/18 18:22> Discharge/Continuing Care - Treatment Team Participation Patient/Family/SO Statement: 07/13/18 18:21 Pt seen in treatment team on 07/11/18. Pt reported that his anxiety has been a "roller coaster, up and down." Pt reported that his depression was a 10 at admission and is now down to a "5." Pt expressed symptoms of rapid heartbeat. Increase of Abilify discussed. Pt denied SI/HI and AVT hallucinations. Discussed with Family/SO: Yes Was Patient/Family/SO present at Treatment Team Meeting: Yes
--- NOTE | 2018-07-10 13:27 | PCM.PSYCH ---
Initial Psychiatric Evaluation - Initial Psychiatric Evaluation Type of Admission: Voluntary Legal Status: Capacity Chief Complaint (in patient's own words): I am feeling depressed because I could not work History of Present Illness and Precipitating Events: pt is 43 ys old male with previous diagnosis of depression/schizoaffective disorder, pt has been reportedly increasingly depressed as he has been unemployed since 2011, resulting in financial difficulties, pt has been increasingly anxious, reported poor sleep, decreased appetite without specific weight loss, racing thoughts , feeling hopeless and helpless with passive suicidal ideation, denied command hallucinations , denied substance use Current Medications: Active Medications Generic Name Dose Route Start Last Admin Trade Name Freq PRN Reason Stop Dose Admin Acetaminophen 650 mg 07/09/18 22:13 Tylenol 325mg Tab PO Q4 PRN 4-7 pain Al Hydrox/Mg Hydrox/Simethicone 30 ml 07/09/18 22:13 Maalox Plus 30 Ml PO Q4 PRN Dyspepsia Aripiprazole 5 mg 07/10/18 22:00 Abilify PO HS GLENN Diphenhydramine HCl 50 mg 07/09/18 22:13 Benadryl IM Q6 PRN Extrapyramidal S/S Unable PO Diphenhydramine HCl 50 mg 07/09/18 22:13 Benadryl PO Q6 PRN Extrapyramidal Symptoms Diphenhydramine HCl 50 mg 07/09/18 22:13 Benadryl PO HS PRN Sleep Haloperidol 5 mg 07/09/18 22:13 Haldol PO Q4 PRN Agitation Haloperidol Lactate 5 mg 07/09/18 22:13 Haldol IM Q4 PRN Agitation, Unable to Take PO Lorazepam 2 mg 07/09/18 22:13 Ativan IM Q6 PRN Anxiety/Agitation,Unable PO Lorazepam 1 mg 07/09/18 22:13 Ativan PO Q8 PRN Anxiety/Agitation Magnesium Hydroxide 30 ml 07/09/18 22:13 Milk Of Magnesia PO HS PRN Constipation Past Psychiatric History - Past Psychiatric History Explanation of prior treatment: hx of one hospitalization [place] [facility] [place] History of ETOH/Drug Use: NON REPORTED Pertinent Medical Hx (Current Medical&Sleep Prob, Allergies): Allergies Allergy/AdvReac Type Severity Reaction Status Date / Time No Known Allergies Allergy Verified 05/30/18 15:33 Risperidone [Risperdal] 2 mg PO HS 07/07/18 Fluticasone Propionate [Flonase] 1 spr CORNELIA BID bottle 07/09/18 risperiDONE [RisperDAL Tab] 2 mg PO HS tab 07/09/18 Mental Status Examination - Personal Presentation Personal Presentation: Looks stated age - Affect Affect: Constricted, Depressed - Motor Activity Motor Activity: Psychomotor Retardation - Reliability in Providing Information Reliability in Providing Information: Fair - Speech Speech: Relevant - Mood Mood: Depressed, Anxious - Formal Thought Process Formal Thought Process: Circumstantial - Obsessions/Compulsions Obsessions: No Compulsions: No - Cognitive Functions Orientation: Person, Place, Situation Sensorium: Alert Estimate of Intelligence: Average - Risk Risk: Diminished functioning - Strength & Assets Inventory Strength & Assets Inventory: Family support - Limitations Additional comments: UNEMPLOYED DSM 5 DX - DSM 5 DSM 5 Diagnosis: major depression rule out schizoaffective disorder - Recommended/Plan of Treatment Treatment Recommendations and Plan of Treatment: start abilify 5mg daily CBT group and supportive therapy collateral information to be obtained from family
--- NOTE | 2018-07-10 15:19 | CP.PCM.CON ---
History of Present Illness - History of Present Illness History of Present Illness: 43-year-old man with a past medical history of schizoaffective disorder recently admitted to [facility] due to syncope. Neurology consulted, cleared patient. -CT Head (07/07/18): No acute intracranial abnormalities. No significant findings to account for the clinical presentation. No significant interval change compared to the prior examination(s). -ECHO (07/08/18): EF 60-65% -Carotid U/S (07/07/18): Right ICA degree of stenosis: Less than 50%. Left ICA degree of stenosis: Less than 50% -EEG (07/08/18): normal Patient now admitted to psych unit for further treatment of schizoaffective disorder. Patient seen and examined at bedside. No complaints offered at this time. No dizziness or episodes of syncope Denies chest pain sob palpiationss allergies: as per chart meds: as per chart fam hx: non contributory Review of Systems - Review of Systems All systems: reviewed and no additional remarkable complaints except (mentioned above) Past Patient History - Past Medical History & Family History Past Medical History?: Yes Past Family History: Reviewed and not pertinent - Past Social History Smoking Status: Never Smoked - CARDIAC Hx Cardiac Disorders: No - PULMONARY Hx Respiratory Disorders: No Hx Tuberculosis: No - NEUROLOGICAL Hx Neurological Disorder: No Hx Seizures: No Hx Syncope: Yes (admitted in [facility], transfer) - HEENT Hx HEENT Problems: No - RENAL Hx Chronic Kidney Disease: No - ENDOCRINE/METABOLIC Hx Endocrine Disorders: No - HEMATOLOGICAL/ONCOLOGICAL Hx Blood Disorders: No Hx AIDS: No Hx Human Immunodeficiency Virus (HIV): No - INTEGUMENTARY Hx Dermatological Problems: No - MUSCULOSKELETAL/RHEUMATOLOGICAL Hx Musculoskeletal Disorders: No Hx Falls: Yes - GASTROINTESTINAL Hx Gastrointestinal Disorders: No - GENITOURINARY/GYNECOLOGICAL Hx Genitourinary Disorders: No Hx Sexually Transmitted Disorders: No - PSYCHIATRIC Hx Anxiety: Yes Hx Depression: Yes Hx Substance Use: No - SURGICAL HISTORY Hx Surgeries: No - ANESTHESIA Hx Anesthesia: No Hx Anesthesia Reactions: No Meds Allergies/Adverse Reactions: Allergies Allergy/AdvReac Type Severity Reaction Status Date / Time No Known Allergies Allergy Verified 05/30/18 15:33 - Medications Medications: Current Medications Acetaminophen (Tylenol 325mg Tab) 650 mg PO Q4 PRN PRN Reason: 4-7 pain Al Hydrox/Mg Hydrox/Simethicone (Maalox Plus 30 Ml) 30 ml PO Q4 PRN PRN Reason: Dyspepsia Aripiprazole (Abilify) 5 mg PO HS GLENN Diphenhydramine HCl (Benadryl) 50 mg IM Q6 PRN PRN Reason: Extrapyramidal S/S Unable PO Diphenhydramine HCl (Benadryl) 50 mg PO Q6 PRN PRN Reason: Extrapyramidal Symptoms Diphenhydramine HCl (Benadryl) 50 mg PO HS PRN PRN Reason: Sleep Haloperidol (Haldol) 5 mg PO Q4 PRN PRN Reason: Agitation Haloperidol Lactate (Haldol) 5 mg IM Q4 PRN PRN Reason: Agitation, Unable to Take PO Lorazepam (Ativan) 2 mg IM Q6 PRN PRN Reason: Anxiety/Agitation,Unable PO Lorazepam (Ativan) 1 mg PO Q8 PRN PRN Reason: Anxiety/Agitation Magnesium Hydroxide (Milk Of Magnesia) 30 ml PO HS PRN PRN Reason: Constipation Physical Exam - Constitutional Appears: Non-toxic, No Acute Distress - Head Exam Head Exam: NORMAL INSPECTION - Eye Exam Eye Exam: Normal appearance - Respiratory Exam Respiratory Exam: NORMAL BREATHING PATTERN - Cardiovascular Exam Cardiovascular Exam: +S1, +S2 - GI/Abdominal Exam GI & Abdominal Exam: Soft - Neurological Exam Neurological exam: Alert, Oriented x3 - Psychiatric Exam Psychiatric exam: Normal Affect, Normal Mood - Skin Skin Exam: Normal Color, Warm Results - Vital Signs Recent Vital Signs: Last Vital Signs Temp 98.0 F 07/10/18 09:23 Pulse 92 H 07/10/18 09:23 Resp 20 07/10/18 09:23 BP 115/75 07/10/18 09:23 Pulse Ox - Labs Labs: Laboratory Results - last 24 hr 07/10/18 07/10/18 07/10/18 07:39 07:39 07:39 Hemoglobin A1c 5.3 Triglycerides 180 H Cholesterol 232 H LDL Cholesterol Direct 124 HDL Cholesterol 40 Thyroxine (T4) 7.58 TSH 3rd Generation 1.33 RPR Nonreactive Assessment & Plan (1) Schizoaffective disorder Status: Acute (2) Hyperlipidemia Status: Acute (3) Syncope Status: Resolved - Assessment and Plan (Free Text) Plan: available diagnositc data reviewed monitor vitals start atorvastatin cont with psych treatment rest of plan as ordered
--- NOTE | 2018-07-11 15:39 | PCM.PYCHPN ---
Psychiatric Progress Note - Psychiatric Progress Note Patient seen today, length of contact: pt evaluated discussed with team chart reviewed Patient Chief Complaint: I feel anxious and down all the time Problems Identified/Issues Discussed: pt evaluated with treatment team presenting with depressed affect, reported feeling anxious, pt isolates himself in his room, does not attend groups or interact with other patients, discussed with pt starting lexapro and increasing dose of abilify, encouraged pt to attend groups, pt continues to present with thought blocking, appears at times internally preoccupied, pt denied command hallucinations, denied suicidal or homicidal ideation Medical Problems: hx of one hospitalization at [facility] [place] DSM 5 Symptoms Update: major depression recurrent severe with psychotic features Medication Change: Yes (start lexapro ) Medical Record Reviewed: Yes Mental Status Examination - Cognitive Function Orientation: Person, Place, Situation Attention: WNL Concentration: WNL Association: WNL Fund of Knowledge: Poor Decription of patient's judgement and insights: partial insight fair judgment - Mood Mood: Depressed, Anxious - Affect Affect: Constricted, Depressed - Speech Speech: Soft - Formal Thought Process Formal Thought Process: Circumstantial - Suicidal Ideation Suicidal Ideation: No - Homicidal Ideation Homicidal Ideation: No Goal/Treatment Plan - Goal/Treatment Plan Need for Continued Stay: Remain at risks for inpatient hospitalization, Severe depression anxiety, Discharge may exacerbated symptoms Progress Toward Problem(s) and Goals/Treatment Plan: increase abilify 10mg daily lexapro 10mg daily CBT group and supportive therapy
--- NOTE | 2018-07-12 13:55 | PCM.PYCHPN ---
Psychiatric Progress Note - Psychiatric Progress Note Patient seen today, length of contact: pt evaluated discussed with team chart reviewed Patient Chief Complaint: I feel better with the medicine Problems Identified/Issues Discussed: pt evaluated , reported feeling less anxious , affect less depressed, no reported side effects of current medications, noted to be more visible on the unit and less isolative , pt denied command hallucinations, denied suicidal or homicidal ideation Medical Problems: hx of one hospitalization at [facility] [place] DSM 5 Symptoms Update: major depression severe with psychotic features Medication Change: No Medical Record Reviewed: Yes Mental Status Examination - Cognitive Function Orientation: Person, Place, Situation Attention: WNL Concentration: WNL Association: WNL Fund of Knowledge: Poor Decription of patient's judgement and insights: partial insight fair judgment - Mood Mood: Depressed, Anxious - Affect Affect: Constricted, Depressed - Speech Speech: Soft - Formal Thought Process Formal Thought Process: Circumstantial - Suicidal Ideation Suicidal Ideation: No - Homicidal Ideation Homicidal Ideation: No Goal/Treatment Plan - Goal/Treatment Plan Need for Continued Stay: Remain at risks for inpatient hospitalization, Severe depression anxiety, Discharge may exacerbated symptoms Progress Toward Problem(s) and Goals/Treatment Plan: abilify 10mg daily lexapro 10mg daily CBT group and supportive therapy
--- NOTE | 2018-07-13 01:33 | CP.PCM.DIS ---
Provider - Provider Date of Admission: 07/09/18 21:57 Attending physician: Abdirashid Houston MD Consults: 07/09/18 22:19 Internal Medicine Consult Routine Comment: Consulting Provider: Seth Roth Consulting Physician: Seth Roth Reason for Consult: Medical consult Time Spent in preparation of Discharge (in minutes): 30 Hospital Course - Lab Results Lab Results: Most Recent Lab Values Hemoglobin A1c 5.3 % (4.2-6.5) 07/10/18 07:39 Triglycerides 180 mg/DL (0-149) H 07/10/18 07:39 Cholesterol 232 mg/dL (0-199) H 07/10/18 07:39 LDL Cholesterol Direct 124 mg/dL (0-129) 07/10/18 07:39 HDL Cholesterol 40 MG/DL (30-70) 07/10/18 07:39 Thyroxine (T4) 7.58 ug/dl (5.5-11.0) 07/10/18 07:39 TSH 3rd Generation 1.33 mIU/ML (0.46-4.68) 07/10/18 07:39 RPR Nonreactive (NONREACTIVE) 07/10/18 07:39 - Hospital Course Hospital Course: Pt with hx of schizoaffective disorder was hospitalized for syncopal episode. EEG was done, which revealed a normal study. No syncopal episodes during admission. The pt was discharged to involuntary psychiatric unit, dx of schizoaffective disorder. Discharge Exam - Head Exam Head Exam: NORMAL INSPECTION - Eye Exam Eye Exam: EOMI, Normal appearance, PERRL Pupil Exam: NORMAL ACCOMODATION, PERRL - ENT Exam ENT Exam: Mucous Membranes Moist - Neck Exam Neck exam: Full Rom - Respiratory Exam Respiratory Exam: Clear to PA & Lateral, NORMAL BREATHING PATTERN - Cardiovascular Exam Cardiovascular Exam: REGULAR RHYTHM, +S1, +S2 - GI/Abdominal Exam GI & Abdominal Exam: Normal Bowel Sounds, Unremarkable - Extremities Exam Extremities exam: full ROM, normal inspection - Back Exam Back exam: NORMAL INSPECTION - Neurological Exam Neurological exam: Alert, CN II-XII Intact, Normal Gait, Oriented x3 - Psychiatric Exam Psychiatric exam: Flat Affect - Skin Skin Exam: Dry, Normal Color, Warm Discharge Plan - Follow Up Plan Condition: GOOD Disposition: DISCHARGE TO PSYCH HOSPITAL Instructions: Syncope (DC), Syncope (GEN)
--- NOTE | 2018-07-13 12:12 | PCM.PYCHPN ---
Psychiatric Progress Note - Psychiatric Progress Note Patient seen today, length of contact: pt evaluated discussed with team chart reviewed Patient Chief Complaint: I feel good with my medicine Problems Identified/Issues Discussed: pt evaluated ,presenting with brighter affect, reported mood less depressed, no reported side effects of current medications, noted to be more visible on the unit and interacting more with staff, pt denied command hallucinations, denied suicidal or homicidal ideation Medical Problems: hx of one hospitalization at [facility] [place] Medication Change: No Medical Record Reviewed: Yes Mental Status Examination - Cognitive Function Orientation: Person, Place, Situation Attention: WNL Concentration: WNL Association: WNL Fund of Knowledge: Poor Decription of patient's judgement and insights: partial insight fair judgment - Mood Mood: Depressed, Anxious - Affect Affect: Constricted, Depressed - Speech Speech: Soft - Formal Thought Process Formal Thought Process: Circumstantial - Suicidal Ideation Suicidal Ideation: No - Homicidal Ideation Homicidal Ideation: No Goal/Treatment Plan - Goal/Treatment Plan Need for Continued Stay: Remain at risks for inpatient hospitalization, Severe depression anxiety, Discharge may exacerbated symptoms Progress Toward Problem(s) and Goals/Treatment Plan: abilify 10mg daily lexapro 10mg daily CBT group and supportive therapy
--- NOTE | 2018-07-14 13:22 | PCM.PYCHPN ---
Psychiatric Progress Note - Psychiatric Progress Note Patient seen today, length of contact: pt evaluated discussed with team chart reviewed Patient Chief Complaint: I fstill have hard time with sleep Problems Identified/Issues Discussed: pt evaluated ,reported better mood . 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 Medication Change: No Medical Record Reviewed: Yes Mental Status Examination - Cognitive Function Orientation: Person, Place, Situation Attention: WNL Concentration: WNL Association: WNL Fund of Knowledge: Poor Decription of patient's judgement and insights: partial insight fair judgment - Mood Mood: Depressed, Anxious - Affect Affect: Constricted, Depressed - Speech Speech: Soft - Formal Thought Process Formal Thought Process: Circumstantial - Suicidal Ideation Suicidal Ideation: No - Homicidal Ideation Homicidal Ideation: No Goal/Treatment Plan - Goal/Treatment Plan Need for Continued Stay: Remain at risks for inpatient hospitalization, Severe depression anxiety, Discharge may exacerbated symptoms Progress Toward Problem(s) and Goals/Treatment Plan: abilify 10mg daily lexapro 10mg daily trazodone 50mg qhs CBT group and supportive therapy
--- NOTE | 2018-07-14 23:49 | CP.PCM.PN ---
Subjective - Date & Time of Evaluation Date of Evaluation: 07/13/18 Time of Evaluation: 14:45 - Subjective Subjective: Pt seen and assessed at bedside. Reports doing well, no new complaints. As per pt, his dizziness has subsided and he has not experienced any syncopal episodes. Review of Systems - Review of Systems Review of Systems: reviewed and no additional remarkable complaints. Objective - Vital Signs/Intake and Output Vital Signs (last 24 hours): Temp Pulse Resp BP Pulse Ox 98.0 F 82 19 138/86 07/14/18 17:00 07/14/18 17:00 07/14/18 17:00 07/14/18 17:00 - Medications Medications: Current Medications Acetaminophen (Tylenol 325mg Tab) 650 mg PO Q4 PRN PRN Reason: 4-7 pain Al Hydrox/Mg Hydrox/Simethicone (Maalox Plus 30 Ml) 30 ml PO Q4 PRN PRN Reason: Dyspepsia Aripiprazole (Abilify) 10 mg PO HS [facility] Last Admin: 07/14/18 21:02 Dose: 10 mg Atorvastatin Calcium (Lipitor) 10 mg PO DAILY [facility] Last Admin: 07/14/18 09:07 Dose: 10 mg Diphenhydramine HCl (Benadryl) 50 mg IM Q6 PRN PRN Reason: Extrapyramidal S/S Unable PO Diphenhydramine HCl (Benadryl) 50 mg PO Q6 PRN PRN Reason: Extrapyramidal Symptoms Diphenhydramine HCl (Benadryl) 50 mg PO HS PRN PRN Reason: Sleep Escitalopram Oxalate (Lexapro) 10 mg PO DAILY [facility] Last Admin: 07/14/18 09:08 Dose: 10 mg Fluticasone Propionate (Flonase) 1 spr CORNELIA BID [facility] Last Admin: 07/14/18 17:51 Dose: 1 spr Haloperidol (Haldol) 5 mg PO Q4 PRN PRN Reason: Agitation Haloperidol Lactate (Haldol) 5 mg IM Q4 PRN PRN Reason: Agitation, Unable to Take PO Magnesium Hydroxide (Milk Of Magnesia) 30 ml PO HS PRN PRN Reason: Constipation Trazodone HCl (Desyrel) 50 mg PO HS [facility] Last Admin: 07/14/18 21:02 Dose: 50 mg - Constitutional Appears: Well - Head Exam Head Exam: ATRAUMATIC, NORMAL INSPECTION, NORMOCEPHALIC - Eye Exam Eye Exam: EOMI, Normal appearance, PERRL Pupil Exam: NORMAL ACCOMODATION, PERRL - ENT Exam ENT Exam: Mucous Membranes Moist, Normal Exam - Neck Exam Neck Exam: Full ROM, Normal Inspection - Respiratory Exam Respiratory Exam: Clear to Ausculation Bilateral - Cardiovascular Exam Cardiovascular Exam: REGULAR RHYTHM, +S1, +S2 - GI/Abdominal Exam GI & Abdominal Exam: Soft, Normal Bowel Sounds - Extremities Exam Extremities Exam: Full ROM, Normal Capillary Refill, Normal Inspection - Back Exam Back Exam: NORMAL INSPECTION - Neurological Exam Neurological Exam: Alert, Awake, Oriented x3 - Psychiatric Exam Psychiatric exam: Normal Affect, Normal Mood - Skin Skin Exam: Dry, Normal Color, Warm Assessment and Plan (1) Schizoaffective disorder Assessment & Plan: 1.) Schizoaffective disorder Medical Management of this patient: -Medically stable at this time. -On atorvastatin for hyperlipidemia. -No new syncopal episodes. -Denies vertigo. -continue current treatment. Status: Acute
[2018-07-15 10:26] VITALS: RESP 18
--- NOTE | 2018-07-15 14:29 | PCM.PYCHPN ---
Psychiatric Progress Note - Psychiatric Progress Note Patient seen today, length of contact: pt evaluated discussed with team chart reviewed Patient Chief Complaint: I slept better yesterday Problems Identified/Issues Discussed: pt evaluated ,reported improved sleep with adding trazodone , pt opened up about previous times where his depression alternated with periods of hyperactivity, decreased sleep and increased energy however it never was associated with psy chotic symptoms or required hospitalization, discussed with pt the possible diagnosis of Bipolar II , pt reported mood better with less anxiety , no reported side effects of medications, denied any current suicidal or homicidal ideation, denied perceptual disturbances Medical Problems: hx of one hospitalization at [facility] [place] 5 Symptoms Update: bioolar II disorder depressed borderline intellectual function Medication Change: No Medical Record Reviewed: Yes Mental Status Examination - Cognitive Function Orientation: Person, Place, Situation Attention: WNL Concentration: WNL Association: WNL Fund of Knowledge: Poor Decription of patient's judgement and insights: partial insight fair judgment - Mood Mood: Depressed, Anxious - Affect Affect: Constricted, Depressed - Speech Speech: Soft - Formal Thought Process Formal Thought Process: Circumstantial - Suicidal Ideation Suicidal Ideation: No - Homicidal Ideation Homicidal Ideation: No Goal/Treatment Plan - Goal/Treatment Plan Need for Continued Stay: Remain at risks for inpatient hospitalization, Severe depression anxiety, Discharge may exacerbated symptoms Progress Toward Problem(s) and Goals/Treatment Plan: abilify 10mg daily lexapro 10mg daily trazodone 50mg qhs CBT group and supportive therapy
[2018-07-16 10:42] VITALS: BP 134/89; PULSE 84; TEMP 98.5
--- NOTE | 2018-07-16 11:39 | PCM.PYCHDC ---
Mental Status Examination - Mental Status Examination Orientation: Person, Place, Situation Memory: Intact Mood: Neutral Affect: Broad Speech: Appropriate Attention: WNL Concentration: WNL Association: WNL Fund of Knowledge: WNL Formal Thought Process: Circumstantial Description of patient's judgement and insight: partial insight fair judgment Psychotic Thoughts and Behaviors: pt on discharge denied any psychotic symptoms, non elicited Suicidal Ideation: No Current Homicidal Ideation?: No Discharge Summary - Discharge Note Reason for Hospitalization: pt is 43 ys old male with previous diagnosis of depression/schizoaffective disorder, pt has been reportedly increasingly depressed as he has been unemployed since 2011, resulting in financial difficulties, pt has been increasingly anxious, reported poor sleep, decreased appetite without specific weight loss, racing thoughts , feeling hopeless and helpless with passive suicidal ideation, denied command hallucinations , denied substance use Consultations:: List each consultation separately and include: 1. Reason for request. 2. Findings. 3. Follow-up Summary of Hospital Course include:: 1. Description of specific treatment plan utilized for patients during their course of treatmen. 2. Summarize the time- course for resolution of acute symptoms and/or regressed behaviors. 3. Describe issues identified and worked on during hospitalization. 4. Describe medication utilized. 5. Describe medical problems identified and treated. 6. Reassessment of suicide risk Summary of Hospital Course: pt on admission presented with depressed mood and affect,pt through the interview also reported episodes of increased energy and hyperactivity, also complained of social and generalized anxiety and early insomnia he was placed on abilify 10mg . lexapro 10mg trazodone qhs pt gradually presented with brighter mood and affect, improved sleep, attended groups and was compliant with treatment , no reported side effects of medications on discharge mental status was stable, pt denied any current suicidal or homicidal ideation denied perceptual disturbances - Diagnosis (1) Depression Current Visit: Yes Status: Acute - Final Diagnosis (DSM 5) Condition upon Discharge: GOOD DSM 5: bipolar II disorder depressed severe social anxiety Disposition: DISCHARGE TO [facility] Follow-up Treatment Plan: abilify 10mg daily lexapro 10mg daily trazodone 50mg qhs CBT group and supportive therapy Prescriptions/Medication Reconciliation: ARIPiprazole [Abilify] 10 mg PO HS 30 Days #30 tab Atorvastatin [Lipitor] 10 mg PO DAILY 30 Days #30 tab Escitalopram [Lexapro] 10 mg PO DAILY 30 Days #30 tab traZODone [Desyrel] 50 mg PO HS 30 Days #30 tab - Antipsychotic Medications Pt discharged on 2 or more routine antipsychotic medications: No
== END 2018-07-16 12:43 | DRG 753 ==
LOC: H.PSYCH 21:57
PROVIDERS: ADMIT Psychiatry & Neurology Psychiatry; ATTEND Psychiatry & Neurology Psychiatry
PROC: GZHZZZZ Group Psychotherapy (ICD-10-PCS; principal; 2018-07-09)
PROC: GZ58ZZZ Individual Psychotherapy, Cognitive-Behavioral (ICD-10-PCS; 2018-07-09)
PROC: GZ56ZZZ Individual Psychotherapy, Supportive (ICD-10-PCS; 2018-07-09)
DX: F31.81 Bipolar II disorder (principal); E78.5 Hyperlipidemia, unspecified; F40.10 Social phobia, unspecified; R41.83 Borderline intellectual functioning; G47.00 Insomnia, unspecified